=== PATIENT | female | born 1995 | race American Indian/Alaskan Native ===

== ENCOUNTER 2017-03-07 20:27 | Emergency (ER) | payer SELFPAY ==
[2017-03-07 21:30] VITALS: BP 131/85
[2017-03-08 01:03] LABS: Bacteria,Urine 1+ /HPF (Negative); Bilirubin,Urine NEG (Negative); Blood,Urine MOD (Negative); Ketones,Urine NEG (Negative); Leukocyte Esterase,Urine LG (Negative); Mucus,Urine 2+ /HPF; Nitrite,Urine NEG (Negative)
[2017-03-08 01:10] LABS: WBC,Urine > 182.0 /HPF (0.0-6.0)
== END 2017-03-08 04:32 | disposition left against medical advice (07) ==
LOC: ED 20:27
DX: R10.2 Pelvic and perineal pain (principal); Z53.21 Procedure and treatment not carried out due to patient leaving prior to being seen by health care provider
CPT/HCPCS: 81001; 81025

== ENCOUNTER 2017-03-09 19:15 | Emergency (ER) | payer SELFPAY ==
[2017-03-09] MEDS ORDERED: TYLENOL PO ONE (19:33)
[2017-03-09] MEDS ORDERED: TYLENOL ONE (19:37)
[2017-03-09] MEDS: TYLENOL PO ONE ×2 (19:40)
[2017-03-09 21:57] LABS: Bacteria,Urine 4+ /HPF (Negative); Bilirubin,Urine NEG (Negative); Blood,Urine LG (Negative); Ketones,Urine 20 mg/dL (Negative); Leukocyte Esterase,Urine LG (Negative); Mucus,Urine 3+ /HPF; Nitrite,Urine POS (Negative); Urobilinogen,Urine < 2.0 mg/dL (<2.0)
[2017-03-09 21:58] LABS: WBC,Urine > 182.0 /HPF (0.0-6.0)
--- NOTE | 2017-03-10 01:40 | Emergency Department Report ---
HPI - General Chief Complaint: Back Pain/Injury Time Seen by Provider: 03/10/17 01:35 - HPI HPI: Patient is a 21-year-old female presents to ED complaining of lower abdominal cramping pain and burning with urination times one week. Patient states she is increased urination the past 2 days. She Denies Fevers/Chills/Nausea/Vomiting/ Pain or Chest Pain. She denies vaginal discharge or bleeding ED Past Medical Hx - Past Medical History Previous Medical History?: No Hx Hypertension: No Hx Congestive Heart Failure: No Hx Diabetes: No Hx Deep Vein Thrombosis: No Hx Renal Disease: No Hx Sickle Cell Disease: No Hx Seizures: No Hx Asthma: No Hx COPD: No Hx HIV: No - Surgical History Past Surgical History?: No - Social History Smoking Status: Never Smoker Substance Use Type: Marijuana - Medications Home Medications: Home Medications Medication Instructions Recorded Confirmed Last Taken Type Sulfamethoxazole/Trimethoprim 1 each PO BID #14 tablet 04/10/15 Unknown Rx [Bactrim DS TAB] traMADol [Ultram] 50 mg PO Q6HR PRN #14 tablet 04/10/15 Unknown Rx Hydrocortisone 1% [Hydrocortisone 1 applicatio TP TID #1 tube 03/25/16 Unknown Rx 1% CREAM] Permethrin [Lice Cream Rinse] 120 ml TP 1XW #1 bottle 03/25/16 Unknown Rx Ciprofloxacin HCl [Ciprofloxacin 500 mg PO Q12H #14 tab 03/10/17 Unknown Rx TAB] Ibuprofen [Motrin 600 MG tab] 600 mg PO Q8H PRN #60 tablet 03/10/17 Unknown Rx Phenazopyridine [Pyridium] 200 mg PO BID #8 tab 03/10/17 Unknown Rx ED Review of Systems ROS: Stated complaint: ABD PAIN Other details as noted in HPI Constitutional: denies: chills, fever Eyes: denies: eye pain, eye discharge, vision change ENT: denies: ear pain, throat pain, congestion Respiratory: denies: cough, shortness of breath, wheezing Cardiovascular: denies: chest pain, palpitations Endocrine: no symptoms reported Gastrointestinal: denies: abdominal pain, nausea, vomiting, diarrhea Genitourinary: dysuria, frequency. denies: urgency, hematuria, discharge, dyspareunia Musculoskeletal: denies: back pain, joint swelling, arthralgia Skin: denies: rash, lesions Neurological: denies: headache, weakness, paresthesias Psychiatric: denies: anxiety, depression Hematological/Lymphatic: denies: easy bleeding, easy bruising Physical Exam - Physical Exam Vital Signs: Vital Signs 03/09/17 03/09/17 19:24 19:40 Temperature 97.4 F L Pulse Rate 77 Respiratory 14 18 Rate Blood Pressure 102/66 O2 Sat by Pulse 100 Oximetry Physical Exam: GENERAL: Alert and oriented x3, no apparent distress, Normal Gait, atraumatic. HEAD: Head is normocephalic and a-traumatic. NECK: Supple. Non edematous, No carotid bruits. No lymphadenopathy or thyromegaly. No C-spine tenderness LUNGS: Symetrical with respiration, No wheezing, no rales or crackles, CTAB. HEART: S1, S2 present, regular rate and rhythm without murmur, no rubs, no gallops. Non tender to palpation ABDOMEN: No organomegaly was noted,Positive bowel sounds, soft, and non- distended. . Nontender to palpation on all Quadrants, NO CVA tenderness. BACK: Full range of motion, no spinal tenderness, nontender to palpation. SKIN: Warm and dry, No lesions, No ulceration or induration present. ED Course Vital Signs 03/09/17 03/09/17 19:24 19:40 Temperature 97.4 F L Pulse Rate 77 Respiratory 14 18 Rate Blood Pressure 102/66 O2 Sat by Pulse 100 Oximetry ED Medical Decision Making - Medical Decision Making 21-year-old female presenting in a tract infection Urinalysis shows 4+ bacteria, elevated white blood cells and leukocyte esterase. Discussed findings with the patient. Discussed with the patient follow-up with primary care physician. Vital signs are normal patient is in no acute distress. She may have any new symptoms or worsening symptoms to return to ED Critical care attestation.: If time is entered above; I have spent that time in minutes in the direct care of this critically ill patient, excluding procedure time. ED Disposition Clinical Impression: UTI (urinary tract infection) Qualifiers: Urinary tract infection type: acute cystitis Hematuria presence: with hematuria Qualified Code(s): N30.01 - Acute cystitis with hematuria Disposition: TO HOME OR SELFCARE Is pt being admited?: No Does the pt Need Aspirin: No Condition: Stable Instructions: Urinary Tract Infection in Women (ED), Dysuria (ED) Prescriptions: Ciprofloxacin HCl [Ciprofloxacin TAB] 500 mg PO Q12H #14 tab Ibuprofen [Motrin 600 MG tab] 600 mg PO Q8H PRN #60 tablet PRN Reason: Pain Phenazopyridine [Pyridium] 200 mg PO BID #8 tab Referrals: PRIMARY CARE,MD [Primary Care Provider] - 3-5 Days [facility] [Outside] - 3-5 Days [facility] [Outside] - 3-[address] [facility] [Outside] - 3-5 Days Forms: Work/School Release Form(ED) Time of Disposition: 02:31
[2017-03-10] MEDS ORDERED: AUGMENTIN 500 MG PO ONE (02:07)
[2017-03-10] MEDS ORDERED: FLAGYL PO ONE (02:36)
[2017-03-10 03:43] VITALS: BP 104/61
== END 2017-03-10 02:50 | disposition home or self-care (01) ==
LOC: ED 19:15
DX: N39.0 Urinary tract infection, site not specified (principal); F12.10 Cannabis abuse, uncomplicated
CPT/HCPCS: 81001; 81025; 99283

== ENCOUNTER 2017-11-07 20:21 | Emergency (ER) | payer MEDICAID ==
[2017-11-07 21:15] VITALS: BP 112/69
[2017-11-08] MEDS ORDERED: MOTRIN PO ONE (00:32)
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
== END 2017-11-08 00:45 | disposition home or self-care (01) ==
LOC: ED 20:21
DX: M25.561 Pain in right knee (principal); M54.9 Dorsalgia, unspecified; M54.2 Cervicalgia; V49.49XA Driver injured in collision with other motor vehicles in traffic accident, initial encounter; Y93.89 Activity, other specified; Y92.89 Other specified places as the place of occurrence of the external cause; Y99.8 Other external cause status
CPT/HCPCS: 99282

== ENCOUNTER 2019-05-11 04:32 | Emergency (ER) | payer SELFPAY ==
[2019-05-11 04:46] VITALS: BP 113/83
== END 2019-05-11 07:00 | disposition left against medical advice (07) ==
LOC: ED 04:32
DX: R11.2 Nausea with vomiting, unspecified (principal); J02.9 Acute pharyngitis, unspecified; Z53.21 Procedure and treatment not carried out due to patient leaving prior to being seen by health care provider

== ENCOUNTER 2021-03-15 06:43 | Inpatient (IN) | payer MEDICAID ==
[2021-03-15] MEDS ORDERED: LIDOCAINE (2%) 20 MG/1 ML VIAL 20 ML MDV INFILTRATI ONE (07:57)
[2021-03-15] MEDS ORDERED: CARBOPROST TROMETHAMINE 250 MCG/1 ML INJ IM PRN (07:57)
[2021-03-15] MEDS ORDERED: LOPERAMIDE 2 MG CAP PO PRN (07:57)
[2021-03-15] MEDS ORDERED: ONDANSETRON 4 MG/2 ML INJ IV PRN ×2 (07:57→10:17)
[2021-03-15] MEDS ORDERED: ACETAMINOPHEN 325 MG TAB PO PRN ×2 (07:57→10:17)
[2021-03-15] MEDS ORDERED: fentaNYL 100 MCG/2 ML INJ IV PRN (07:57)
[2021-03-15] MEDS ORDERED: OXYTOCIN 10 UNIT/1 ML INJ IM PRN (07:57)
[2021-03-15] MEDS ORDERED: AMPICILLIN/NS 2 GM/100 ML 2 GM/100 ML BAG IV ONE ×2 (07:57→09:00)
[2021-03-15] MEDS ORDERED: BUTORPHANOL 2 MG/1 ML INJ IV PRN ×2 (07:57)
[2021-03-15] MEDS ORDERED: NalbUPHINE 10 MG/1 ML INJ IV PRN (07:57)
[2021-03-15] MEDS ORDERED: TERBUTALINE 1 MG/1 ML INJ SUB-Q PRN (07:57)
[2021-03-15] MEDS ORDERED: miSOPROStol 200 MCG TAB PR PRN (07:57)
[2021-03-15] MEDS ORDERED: MINERAL OIL 30 ML ORAL LIQD PO PRN (07:57)
[2021-03-15] MEDS ORDERED: ePHEDrine SULFATE 50 MG/1 ML INJ IV PRN ×2 (07:57→09:18)
[2021-03-15] MEDS ORDERED: METHYLERGONOVINE MALEATE 0.2 MG/ML VIAL IM PRN (07:57)
[2021-03-15] MEDS ORDERED: HYDROcodone/ACETAMINOPHEN 10-325MG TAB PO PRN (07:58)
[2021-03-15] MEDS ORDERED: MORPHINE 10 MG/1 ML INJ IM PRN (07:58)
[2021-03-15] MEDS ORDERED: OXYTOCIN DRIP 30 UNITS/500 ML BAG IV SCH ×2 (08:00)
[2021-03-15] MEDS ORDERED: LACTATED RINGERS 1,000 ML IV SCH (08:00)
--- NOTE | 2021-03-15 08:05 | History and Physical Report ---
History of Present Illness Date of examination: 03/15/21 Chief complaint: active labor Past History Past Surgical History: no surgical history Social history: no significant social history - Obstetrical History Expected Date of Delivery: 03/17/21 Actual Gestation: 39 Week(s) 5 Day(s) : 3 Para: 1 Medications and Allergies Allergies Allergy/AdvReac Type Severity Reaction Status Date / Time No Known Allergies Allergy Verified 12/29/15 01:23 Home Medications Medication Instructions Recorded Confirmed Last Taken Type Sulfamethoxazole/Trimethoprim 1 each PO BID #14 tablet 04/10/15 Unknown Rx [Bactrim DS TAB] traMADoL [Ultram] 50 mg PO Q6HR PRN #14 tablet 04/10/15 Unknown Rx Hydrocortisone 1% [Hydrocortisone 1 applicatio TP TID #1 tube 03/25/16 Unknown Rx 1% CREAM] Permethrin [Lice Cream Rinse] 120 ml TP 1XW #1 bottle 03/25/16 Unknown Rx Ciprofloxacin HCl [Ciprofloxacin 500 mg PO Q12H #14 tab 03/10/17 Unknown Rx TAB] Phenazopyridine [Pyridium] 200 mg PO BID #8 tab 03/10/17 Unknown Rx Baclofen [Lioresal] 10 mg PO TID #15 tab 11/08/17 Unknown Rx Ibuprofen [Motrin 600 MG tab] 600 mg PO Q8H PRN #30 tablet 11/08/17 Unknown Rx Active Meds: Active Medications Hydrocodone Bitart/Acetaminophen (Hydrocodone/Acetaminophen 10-325mg Tab) 1 each PO Q4H PRN PRN Reason: Pain, Moderate (4-6) Ampicillin Sodium (Ampicillin/Ns 2 Gm/100 Ml) 2 gm in 100 mls @ 100 mls/hr IV ONCE ONE; Protocol Stop: 03/15/21 08:58 Ampicillin Sodium (Ampicillin/Ns 1 Gm/50 Ml) 1 gm in 50 mls @ 100 mls/hr IV Q4H MAL; Protocol Morphine Sulfate (Morphine 10 Mg/1 Ml Inj) 8 mg IM ONCE PRN PRN Reason: Pain , Severe (7-10) Review of Systems All systems: negative (contractions) - Vital Signs Vital signs: Vital Signs Temp Pulse Resp BP Pulse Ox 98.6 F 104 H 18 119/80 98 03/15/21 07:12 03/15/21 07:12 03/15/21 07:12 03/15/21 07:12 03/15/21 07:12 Temp Pulse Resp BP Pulse Ox 98.6 F 93 H 18 129/91 98 03/15/21 07:12 03/15/21 07:57 03/15/21 07:12 03/15/21 07:50 03/15/21 07:57 - Physical Exam Breasts: Positive: deferred Cardiovascular: Regular rate Lungs: Positive: Clear to auscultation Abdomen: Positive: normal appearance, soft, normal bowel sounds Genitourinary (Female): Positive: normal external genitalia, normal perenium Vulva: both: normal Vagina: Positive: normal moisture Uterus: Positive: enlarged Adnexa: both: normal Anus/Rectum: Positive: normal perianal skin Extremities: Positive: normal Deep Tendon Reflex Grade: Normal +2 - Obstetrical FHR: category 1 Cervical Dilatation: 6 Uterine Contraction Pattern: Regular Results All other labs normal. Assessment and Plan admit CFM Pain meds prn abx Prental panel expect rayna Ness MD
[2021-03-15 08:44] LABS: Basophils % (Auto) 0.2 % (0.0-1.8); Eosinophils % (Auto) 0.5 % (0.0-4.3); Hematocrit 35.3 % (30.3-42.9); Hemoglobin 11.5 gm/dl (10.1-14.3); Lymphocytes # (Auto) 1.6 K/mm3 (1.2-5.4); Lymphocytes % (Auto) 22.5 % (13.4-35.0); Mean Corpuscular HGB Conc 33 % (30-34); Mean Corpuscular Volume 87 fl (79-97); Monocytes # (Auto) 0.6 K/mm3 (0.0-0.8); Monocytes % (Auto) 8.1 % (0.0-7.3); Red Blood Count 4.08 M/mm3 (3.65-5.03); Red Cell Distribution Width 13.9 % (13.2-15.2)
[2021-03-15 08:48] LABS: Platelet Count 167 K/mm3 (140-440)
[2021-03-15] MEDS ORDERED: NALOXONE 2 MG/2 ML INJ IV PRN (09:18)
--- NOTE | 2021-03-15 09:38 | Anesthesia Consultation ---
Anesthesia Consult and Med Hx Date of service: 03/15/21 - Airway Anesthetic Teeth Evaluation: Good ROM Head & Neck: Adequate Mental/Hyoid Distance: Adequate Mallampati Class: Class II Intubation Access Assessment: Probably Good - Pulmonary Exam CTA: Yes - Cardiac Exam Cardiac Exam: RRR - Pre-Operative Health Status ASA Pre-Surgery Classification: ASA2 Proposed Anesthetic Plan: Epidural - Pulmonary Hx Smoking: No Hx Asthma: No Hx Respiratory Symptoms: No SOB: No COPD: No Home Oxygen Therapy: No Hx Pneumonia: No Hx Sleep Apnea: No - Cardiovascular System Hx Hypertension: No Hx Coronary Artery Disease: No Hx Heart Attack/AMI: No Hx Angina: No Hx Percutaneous Transluminal Coronary Angioplasty (PTCA): No Hx Cardia Arrhythmia: No Hx Pacemaker: No Hx Internal Defibrillator: No Hx Valvular Heart Disease: No Hx Heart Murmur: No Hx Peripheral Vascular Disease: No - Central Nervous System Hx Neuromuscular Disorder: No Hx Seizures: No CVA: No Hx Back Pain: Yes Hx Psychiatric Problems: No - Gastrointestinal Hx Ulcer: No Hx Gastroesophageal Reflux Disease: No - Endocrine Hx Renal Disease: No Hx End Stage Renal Disease: No Hx Cirrhosis: No Hx Liver Disease: No Hx Insulin Dependent Diabetes: No Hx Non-Insulin Dependent Diabetes: No Hx Thyroid Disease: No Hx Hypothyroidism: No Hx Hyperthyroidism: No - Hematic Hx Anemia: No Hx Sickle Cell Disease: No - Other Systems Hx Alcohol Use: No Hx Substance Use: No Hx Cancer: No Hx Obesity: No
--- NOTE | 2021-03-15 09:41 | Progress Note ---
Labor Epidural - Labor Epidural Start Time: 08:30 Stop Time: 08:52 Performed by:: MARIN HERR Procedure: Patient is requesting a laboring epidural for laboring pain. Patient IDed, H&P reviewed, all questions and concerns were answered, and consent was signed. Timeout was performed at bedside. Patient in sitting position. Sterile prep and drape was performed. [3] ml of 1% lidocaine skin wheal at L[3]- L [4]. 18- gauge Tuohy epidural needle was advanced to loss of resistance with saline technique 4cm. Negative CSF negative blood. Epidural catheter advanced to [10] centimeters. [NEGATIVE] Aspiration [NEGATIVE] test dose. Sterile dressing applied. Patient tolerated procedure.
[2021-03-15] MEDS ORDERED: fentaNYL-BUPIV 2 MCG/ML-0.125% 200 MCG/100 ML BAG EPIDURAL SCH (10:00)
[2021-03-15] MEDS ORDERED: diphenhydrAMINE 25 MG CAP PO PRN (10:17)
[2021-03-15] MEDS ORDERED: PROMETHAZINE 25 MG RECT SUPP PR PRN (10:17)
[2021-03-15] MEDS ORDERED: WITCH HAZEL/ GLYCERIN PAD TP PRN (10:17)
[2021-03-15] MEDS ORDERED: MAGNESIUM HYDROXIDE (MOM) ORAL LIQD UDC PO PRN (10:17)
[2021-03-15] MEDS ORDERED: PROMETHAZINE 25 MG TAB PO PRN (10:17)
[2021-03-15] MEDS ORDERED: LANOLIN/ZINC/DIMETHICONE (LANSINOH) 7 GM TP PRN (10:17)
--- NOTE | 2021-03-15 10:23 | Procedure Note ---
OB Delivery Note - Delivery Date of Delivery: 03/15/21 Surgeon: HUGO NOWAK Estimated blood loss: 200cc - Vaginal Delivery position: OA Intrapartum events: meconium, mult. late decelerations Delivery induction: none Delivery augmentation: rupture of membranes, pitocin Delivery monitor: external FHT, external uterine Route of delivery: vacuum extraction Indicators for instrumentation: nonreassuring FHR tracing Delivery placenta: spontaneous Delivery cord: 3 umbilical vessels Delivery laceration: none Anesthesia: epidural Delivery comments: Patient pushed to deliver via VAVD a viable female over an intact perineum with weight and . Position RADHA, loose nuchal and body cord reduced at delivery. Vacuum applied x1 pull with no excess traction to max 500mmHg. Vacuum applied for multiple late variables and loss of baseline at +2 station. Spontaneous cry at delivery. Delivery of the anterior shoulder atraumatic, remainder of deli very uncomplicated. Cord clamped cut and baby handed to waiting NADYA team. Spontaneous delivery of an intact placenta with three-vessel cord. Inspection of the perineum cervix and vagina revealed no lacerations. Firm fundus, EBL 200ml. All sponge needle and instrument counts correct x2. Mom and baby stable to . Adriane Nowak MD
[2021-03-15] MEDS ORDERED: AMPICILLIN/NS 1 GM/50 ML 1 GM/50 ML BAG IV SCH ×2 (12:00→13:00)
[2021-03-15 12:17] LABS: Hepatitis C Virus Antibody Non-Reactive (NonReactive)
[2021-03-15] MEDS: IBUPROFEN 600 MG TAB PO SCH ×3 (12:36→23:00)
[2021-03-15] MEDS: SENNOSIDES/DOCUSATE SODIUM 8.6/50 MG TAB PO SCH ×2 (12:37→23:00)
--- NOTE | 2021-03-15 13:17 | Post Anesthesia Evaluation ---
- Post Anesthesia Evaluation Patient Participated: Yes Airway Patent: Yes Stable Respiratory Function: Yes Nausea/Vomiting: No Temp > 96.8F: Yes Pain Manageable: Yes Adequeate Hydration: Yes Anesthesia Complications: No Block Receding Appropriately: Yes Patient on Ventilator: No
[2021-03-15] MEDS: HYDROcodone/ACETAMINOPHEN 5-325 MG TAB PO PRN (16:50)
[2021-03-16 00:41] LABS: Hematocrit 34.4 % (30.3-42.9)
[2021-03-16] MEDS: HYDROcodone/ACETAMINOPHEN 5-325 MG TAB PO PRN ×3 (05:00→17:57)
[2021-03-16] MEDS: IBUPROFEN 600 MG TAB PO SCH ×3 (05:00→22:55)
[2021-03-16] MEDS: SENNOSIDES/DOCUSATE SODIUM 8.6/50 MG TAB PO SCH ×2 (10:44→22:55)
--- NOTE | 2021-03-16 11:52 | Progress Note ---
Assessment and Plan A: PP Day #1 Stable P: Follow Routine Orders D/C Home in the AM RTO in 6 Weeks Subjective - Subjective Date of service: 03/16/21 Patient reports: appetite normal, voiding normally, pain well controlled, flatus, ambulating normally [place]: doing well Objective - Vital Signs Latest vital signs: Vital Signs Temp Pulse Resp BP Pulse Ox Pulse Ox 03/16/21 08:14 98.0 F 18 116/75 03/16/21 07:45 100 03/16/21 06:00 18 03/16/21 05:00 18 03/16/21 00:32 98.1 F 84 20 116/66 96 03/16/21 00:00 18 03/15/21 23:00 18 03/15/21 20:00 100 03/15/21 16:43 98.2 F 84 18 117/66 96 03/15/21 12:01 97.5 F L 65 18 112/69 99 03/15/21 12:00 99 Intake and Output 03/15/21 03/16/21 03/16/21 22:59 06:59 14:59 Intake Total 240 240 680 Output Total 900 Balance -660 240 680 Intake: Oral 240 240 680 Output: Urine 900 Void 900 Other: Total, Intake Amount 240 120 320 Total, Output Amount 300 # Voids Void 1 1 1 - Exam Breasts: Present: normal Cardiovascular: Present: Regular rate Lungs: Present: Clear to auscultation, Normal air movement Abdomen: Present: normal appearance, soft, normal bowel sounds Uterus: Present: normal, firm, fundal height below umbilicus Extremities: Present: normal
--- NOTE | 2021-03-16 11:56 | Discharge Summary ---
Providers - Providers Date of Admission: 03/15/21 08:07 Date of discharge: 03/17/21 Attending physician: HUGO NOWAK MD Primary care physician: HUGO NOWAK MD Hospitalization Reason for admission: active labor Delivery: vacuum extraction Episiotomy: midline Laceration: none Other procedures: none complications: none Discharge diagnosis: IUP at term delivered baby: female Condition at discharge: Good Disposition: 01 HOME / SELF CARE / HOMELESS Plan - Provider Discharge Summary Activity: routine, no sex for 6 weeks, no heavy lifting 4 weeks, no strenuous exercise Diet: routine Instructions: routine Additional instructions: [] Smoking cessation referral if applicable(refer to patient education folder for contact #) [] Refer to [facility] Booklet Call your doctor immediately for: * Fever > 100.5 * Heavy vaginal bleeding ( >1 pad per hour) * Severe persistent headache * Shortness of breath * Reddened, hot, painful area to leg or breast * Drainage or odor from incision. * Keep incision clean and dry at all times and follow doctor's instructions regarding bathing/showering - Follow up plan Follow up: HUGO NOWAK MD [Primary Care Provider] - 6 Weeks
[2021-03-17] MEDS: IBUPROFEN 600 MG TAB PO SCH (05:00)
[2021-03-17 18:04] VITALS: BP 132/85
== END 2021-03-17 10:30 | disposition home or self-care (01) | DRG 775 ==
LOC: TRG 06:43 → APU 06:45 → LD 07:48 → TRG 07:57 → LD 08:07 → OB 12:12
PROVIDERS: ADMIT Obstetrics & Gynecology; ATTEND Obstetrics & Gynecology
PROC: 10D07Z6 Extraction of Products of Conception, Vacuum, Via Natural or Artificial Opening (ICD-10-PCS; principal; 2021-03-15)
PROC: 3E0R3BZ Introduction of Anesthetic Agent into Spinal Canal, Percutaneous Approach (ICD-10-PCS; 2021-03-15)
PROC: 00HU33Z Insertion of Infusion Device into Spinal Canal, Percutaneous Approach (ICD-10-PCS; 2021-03-15)
PROC: 0W8NXZZ Division of Female Perineum, External Approach (ICD-10-PCS; 2021-03-15)
DX: O76 Abnormality in fetal heart rate and rhythm complicating labor and delivery (principal); Z3A.39 39 weeks gestation of pregnancy; Z37.0 Single live birth; Z20.822 Contact with and (suspected) exposure to COVID-19; O77.0 Labor and delivery complicated by meconium in amniotic fluid; O69.81X0 Labor and delivery complicated by cord around neck, without compression, not applicable or unspecified
CPT/HCPCS: 36415; 85014; 85018; 85025; 86592; 86706; 86762; 86803; 86850; 86900; 86901; 87806; 88307; G0378; J7120; U0003